=== PATIENT | male | born 1970 | race Hispanic/Latino ===

== ENCOUNTER → 2017-01-28 | Day surgery (SDC) | payer OTHER ==
[~2017-01-28] VITALS: Ht 175.3 cm; Wt 115.9 kg
[2017-01-28] VITALS (8 sets, daily range): BP systolic 101–118; BP diastolic 55–83; PULSE 74–85; RESP 16–18; O2SAT 94–99
[~2017-01-28] MED LIST: Bupivacaine-MPF 0.5% 30 mL Inj INFILTRATE ONE; Dexamethasone 4 mg/mL Inj IVPUSH PRN; Dexamethasone 4 mg/mL Inj ONE; EPHEDrine Sulfate 50 mg/mL Inj IVPUSH PRN; HYDROmorphone 1 mg/mL Inj IVPUSH PRN; IBUP200C PO; Lactated Ringer's 1,000 ML IV SCH; Lactated Ringer's 500 ML IV PRN; MetoCLOpramide 5 mg/mL 2 mL Inj IVPUSH PRN; MetoCLOpramide 5 mg/mL 2 mL Inj ONE; NIFEDIPINE OINTMENT TP; OXYC5TAB72 PO; Ondansetron 2 mg/mL 2 mL Inj IVPUSH PRN; POLY17PO6 PO; Phenylephrine 10,000 mCg/mL Inj IVPUSH PRN; Polyethylene Glycol (PEG) 17 Gm Powder PO SCH; Propofol 10,000 mCg/mL 20 mL Inj ONE; SILD100T PO; TEST5GEL2 TD; fentaNYL-PF 50 mCg/mL 2 mL Inj IVPUSH PRN; fentaNYL-PF 50 mCg/mL 2 mL Inj ONE
[2017-01-28] MEDS: Lactated Ringer's 1,000 ML IV SCH ×2 (06:35→08:38)
--- NOTE | 2017-01-28 08:37 | PCM.HPANE ---
Patient Data Surgeon Admitting Provider: Attending Provider:Lida Rodriguez MD Primary Care Physician:Mehrdad Mosqueda MD Other Provider:Elaine Eden Anesthesia Reason for Visit Anal Fissure Ht/WT & BMI Height (Feet): 5 Height (Inches): 9.00 Weight (Kilograms): 115.900 Body Mass Index 37.00 Allergies Coded Allergies: No Known Allergies (Unverified , 10/05/15) Past Anesthesia History Anesthesia History: Denies:: Abnormal Airway, Anesthesia Reactions, Difficult Intubation, Fam Anesthesia Reaction, Fam Malignant Hypertherm, Malignant Hyperthermia Diabetes History Hx Diabetes?: No MRSA MRSA: No Medications Home Meds Incl Beta Nereyda: No Active Scripts oxyCODONE 5 Mg Tablet5 Mg PO Q12 PRN For Moderate Pain #14 TABLET Prov:Lida Rodriguez MD 01/28/17 Polyethylene Glycol 3350 (Miralax)17 Gm Powd.pack17 Gm PO DAILY #30 DOSE Prov:Lida Rodriguez MD 01/28/17 Reported Medications Ibuprofen 200 Mg [id number] Mg PO QID PRN For Pain Ref 0 01/01/16 Sildenafil Citrate (Viagra)100 Mg [id number] Mg PO UD PRN erectile dysfunction Ref 0 12/27/15 [Nifedipine Ointment] No Conflict Check1 Applic TP BID PRN PRN 10/05/15 Polyethylene Glycol 3350 (Miralax)17 Gm Powd.pack17 Gm PO DAILY 10/05/15 Testosterone (Androgel)5 Gm Gel.packet5 Gm TD DAILY 10/05/15 History History of ENT Problems?: No HEENT History: Denies:: Abnormal Airway Cataracts Difficult Intubation Dysphagia Glaucoma Hearing Problem Sinus Problem TMJ Denture Type: None Teeth Condition: Within Normal Limits Hx of Heart Problems?: No Cardiovascular History: Denies:: AICD Abdominal Aortic Aneurism Atrial Fibrillation Cardiac Surgery Chest Pain Congestive Heart Failure Coronary Artery Disease Edema Heart Murmur Hypertension Irregular Heartbeat Pacemaker Peripheral Vascular Rheumatic Fever Thrombophlebitis Valvular Heart Disease Hx of Respiratory Problem?: No Respiratory History: Denies:: Oxygen Administration Use of C-PAP Machine Hx Neurologic Problems?: No Hx of GI Problems?: Yes Hx of Problems?: No Genitourinary History: Denies:: HX of Hemodialysis Kidney Stones HX of Peritoneal Dialysis: No Male Hx: Denies:: Prostate Problems Scrotal Mass Testicular Surgery (ON TESTOSTERONE REPLACEMENT FOR HYPOGONADISM) Skin History: Denies:: History Skin Disorders? Pressure Ulcers Hx Musculoskeletal Problems?: Yes Musculoskeletal History: Positive for:: Musculoskeletal Trauma (S/P LT BUNIONECTOMY, RT WRIST RPR FOR RECURRENT TENDONITIS) Denies:: Back Injury Degenerative Joint Fibromyalgia Joint Replacement Myasthenia Gravis Osteoarthritis Rheumatoid Arthritis Systemic Lupus Hx of Psycho/Social Problems?: No Hx Surgeries?: Yes (LT BUNIONECTOMY,RT WRIST RPR,LANCING OF THROMBOSED HEMORRHOID) Hx Any Other Health Problems?: Yes Other History: Denies:: Cancer Endocrine Disease Hospitalization Thyroid Disease History Blood Transfusions: Positive for:: Accept Blood Products? Denies:: Blood Transfusions Hx Diabetes: No Hx Alcohol Use: Yes (OCCAS)Hx Substance Use: No Smoking Status: Never Smoker Have You Smoked inLast 12 mo: No Stop/Bang S-Snoring: Do You Snore Loudly: Yes T-Tired: feel tired, fatigued: No O-Obsered: Observed not breath: No P-Blood Pressure: treated: No B- Body Mass Index > 35 kg/m2: Yes A- Age over 50: No N- Neck Large Circumference: No G- Gender Male: Yes TATUM Total Score: 3 Risk Assessment Category Category 1A: Patient has history of documented sleep apnea, and HAS NOT received any narcotic, sedative or anesthesia administration during this stay. Category 1B: Patient has history of documented sleep apnea, and HAS received any narcotic , sedative or anesthesia administration during this stay Category 2: Patient has SUSPECTED Obstructive Sleep Apnea, and HAS received any narcotic , sedative or anesthesia administration during this stay. Category 3: Patient has SUSPECTED Obstructive Sleep Apnea and HAS NOT received narcotic, sedative or anesthesia administration during this stay. Category 4: Outpatient in Procedural Areas with known sleep apnea or who screen positive for High Risk via the STOP/BANG questionnaire. Exam Exam Vital Signs Vital Signs Date Time Temp Pulse Resp B/P Pulse Ox O2 Delivery O2 Flow Rate FiO2 01/28/17 07:00 35.8 75 16 118/78 95 Room Air 01/28/17 06:47 35.8 75 16 118/78 95 Room Air General Appearance: Alert, Oriented X3, Cooperative, No Acute Distress HEENT/AIRWAY: MP 2 Lungs: Clear to Auscultation Heart: Exam Unremarkable Meds/Labs/Diagnostics Admission Meds Current Medications Lactated Ringer's (Lr) 1,000 ml @ 120 mls/hr Q8H20M IV Last administered on t 06:35; Start 01/28/17 at 05:00; Stop 01/28/17 at 13:19 Plan Impression Patient chart reviewed, patient interviewed and anesthestic plan with risks, benefits, and alternatives discussed, and informed consent obtained. ASA Physical Status: ASA2 Mod Systemic Disease Anesthetic Plan: GA Bene/Risks/Altern/Consents: Yes HP Complete Prior to Induction: Yes Jamarcus Mckeon MD Jan 28, 2017 08:02
--- NOTE | 2017-01-28 09:26 | PCM.SURGPO ---
Immediate Operative Note Date of Surgery: Jan 28, 2017 Pre Operative Diagnosis Chronic Anal Fissure Post Operative Diagnosis Chronic Anal Fissure Procedure Rectal Exam under Anesthesia, Lateral Internal Sphincterotomy Surgeon and Electrician Chief Surgeon: Lida Rodriguez MD Assistants: Ana Murillo, Findings Anal Fisure Complications There were no periprocedural complications identified. Surgical Specimen Removed: No Specimen sent to Pathology: No Anesthetic Administered: GA Grafts, Implants: None Output, Estimated Blood Loss: 2 Blood Admin during surgery: No Attending Statement Electrician Chief listed was not medically necessary for the successful completion of the operation Lida Rodriguez MD Jan 28, 2017 09:26
--- NOTE | 2017-01-28 09:51 | OP ---
[address] [address] OPERATIVE REPORT PATIENT: TAMI CHEN : 1970 MR#: [id number] ADMIT: 01/28/2017 JOB ID: [id number] DATE OF SURGERY: 01/28/2017 PREOPERATIVE DIAGNOSIS(ES): Chronic anal fissure. POSTOPERATIVE DIAGNOSIS(ES): Chronic anal fissure. PROCEDURE PERFORMED: Rectal examination under anesthesia with lateral internal sphincterotomy. SURGEON: Lida Rodriguez MD ELECTRIC WHEELCHAIR REPAIRER: Lashonda Zarate DO INDICATIONS: The patient is a 46-year-old gentleman, whom I have been seeing for anal pain over the last year. Initially, he had a thrombosed external hemorrhoid I had to cele. After that, I found an anal fissure, and took him to the operating room twice, once in September 2015, again in December 2015, with injection of botulinum toxin to help his symptoms. His symptoms improved, but the pain never really got away, and he recently presented back with worsening symptoms, prompting him to come to the operating room today for lateral internal sphincterotomy after discussing the risks, benefits, and alternatives. PROCEDURE DETAILS: He was placed in the supine position, underwent smooth induction of general anesthesia, and the perineum was prepped and draped in the usual sterile fashion. Surgical time-out was undertaken using safety checklist, and all were in agreement. I began by doing a digital rectal examination, and did not feel any abnormalities, other than some irregularity posteriorly. We then inserted the speculum and visualized the chronic fissure posteriorly. After that, I used a speculum to put the sphincter complex under tension, and then felt the intersphincteric groove. I then used an 11 blade to enter the intersphincteric groove and direct the blade medially to divide the internal sphincter fibers that way. After that, I removed blade, and obtained hemostasis with manual pressure. Infiltrated the site widely with 0.5% bupivacaine and terminated the procedure. The patient was recovered from anesthesia, and was taken to the recovery room in a stable condition.
--- NOTE | 2017-01-28 09:55 | PCM.ANEP1 ---
Post Anesthesia PACU Phase 1 Assessment Vital Signs Vital Signs Date Time Temp Pulse Resp B/P Pulse Ox O2 Delivery O2 Flow Rate FiO2 01/28/17 09:45 36.5 75 17 101/58 95 Room Air 01/28/17 09:35 81 16 101/55 95 Room Air 01/28/17 09:32 79 16 111/78 95 Room Air 01/28/17 09:25 85 18 117/67 94 Room Air 01/28/17 09:20 36.6 84 18 115/83 99 Simple Mask 10 01/28/17 07:00 35.8 75 16 118/78 95 Room Air 01/28/17 06:47 35.8 75 16 118/78 95 Room Air Anesthetic Administered: GA Level of Alertness: Sleepy, easy to arouse Pain: No Nausea or Vomiting: No CV Function & Hydration Stable: Yes Airway Device: Oxygen Delivery: Room Air Lungs: Clear to Auscultation Dermatome Level: Full Sensation PACU Phase 2 Assessment Complications: No Patient Instructions Provided: N/A Jamarcus Mckeon MD Jan 28, 2017 09:55
== END | disposition home or self-care (01) ==
LOC: SAS 06:32
PROVIDERS: ATTEND Student in an Organized Health Care Education/Training Program
DX: K60.2 Anal fissure, unspecified (principal); Z79.899 Other long term (current) drug therapy
CPT/HCPCS: 46080; J1100; J2765; J3010; J7120